=== PATIENT | female | born 1940 ===

== ENCOUNTER 2016-09-11 16:23 | Emergency (ER) | payer OTHER ==
--- NOTE | 2016-09-11 17:10 | EDPHY ---
H & P Time Seen by Provider: 09/11/16 17:10 HPI/ROS: CHIEF COMPLAINT: Cough for 1 week HISTORY OF PRESENT ILLNESS: This 75-year-old woman presents from her primary care clinic in [place] for cough and hypoxemia. She brought her note from Dr. Oz Mike, which notes that she has had a cough with white sputum and an oxygen saturation of 84% in his clinic at 2:22 p.m. today. Patient tells me she has had a cough for a week. It has been keeping her up at night. She tried albuterol once it tried Mucinex DM once but they both made her feel very shaky and anxious so she stopped. She does not have chest pain or leg swelling. No recent travel or immobilization. No history of pulmonary embolism. Symptoms are moderate to severe and keeping her up at night. REVIEW OF SYSTEMS: Eye: no change in vision ENT: no sore throat Cardiac: no chest pain or syncope Pulmonary: HPI Abdomen: no vomiting, diarrhea, abdominal pain Musculoskeletal: no back pain or leg pain Skin: no rash Neuro: no headache. She has felt intermittently dizzy for a month when she stands up and wonders if it is because of a change in her diuretic if it is making her blood pressure low. No vertigo Constitutional: no fever, decreased oral appetite and decreased energy for the past week. : no urinary symptoms A comprehensive 10 point review of systems is otherwise negative aside from elements mentioned in the history of present illness. PAST MEDICAL HISTORY: Kidney stones, myocardial infarction with stenting. Negative for DVT or PE. Social history: Nonsmoker. General Appearance: Alert and conversant, cooperative. Eyes: No scleral icterus. ENT, Mouth: Normal mucous membranes. Respiratory: Normal respiratory effort, breath sounds equal, lungs are clear to auscultation. No wheezes auscultated. Cardiovascular: Regular rate and rhythm. Gastrointestinal: Abdomen is soft and non tender. Neurological: Alert and oriented x3. Normally conversant. Face symmetric, normal movement and sensation in all extremities. Skin: Warm and dry, no rashes. Musculoskeletal: No peripheral edema and no joint swelling. No calf tenderness. Psychiatric: Mildly anxious otherwise negative. Emergency Department course/MDM: Clinically sounds like either acute URI or possibly pneumonia. I think pulmonary embolism or acute coronary syndrome or CHF are unlikely. Plan for CBC chemistry and chest x-ray. 1809: Chest x-ray shows airspace disease left lung base per radiologist, normal white blood cell count and chemistry panel. Likely pneumonia, query viral vs bacterial. 185: Results discussed, patient's oxygen saturation 91-92% on room air, encouraged to use hand-held MDI with spacer and teaching and spacer were provided in the emergency department. Oral azithromycin for 5 days. Patient wants go home which I think is entirely reasonable. She is not clinically severely short of breath here and has what looks like mild disease on her x-ray. O2 sat 92% at 1922. Unlikely to be PE or ACS. Does not have SIRS or sepsis criteria. Smoking Status: Never smoked Constitutional: Initial Vital Signs Temperature (C) 36.7 C 09/11/16 16:29 Heart Rate 62 09/11/16 16:29 Respiratory Rate 16 09/11/16 16:29 Blood Pressure 135/69 H 09/11/16 16:29 O2 Sat (%) 91 L 09/11/16 16:29 O2 Delivery Mode Room Air Allergies/Adverse Reactions: [email or web address] Allergy (Verified 09/11/16 16:33) Home Medications: Medication Instructions Recorded Atenolol 09/11/16 Azithromycin 250 mg PO DAILY #4 tablet 09/11/16 Benicar 09/11/16 Crestor 09/11/16 Hydrochlorothiazide 09/11/16 Plavix 09/11/16 Medical Decision Making - Diagnostics Imaging: Chest x-ray viewed independently by myself shows airspace disease left base, radiology report reviewed as well. Differential Diagnosis: Differential diagnosis considered for shortness of breath including but not limited to pulmonary infectious process, COPD, asthma, pulmonary embolus and congestive heart failure. - Data Points Laboratory Results: Laboratory Results 09/11/16 17:44 09/11/16 17:44 09/11/16 17:44 WBC 7.48 10^3/uL (3.80-9.50) RBC 4.70 10^6/uL (4.18-5.33) Hgb 15.4 g/dL (12.6-16.3) Hct 44.3 % (38.0-47.0) MCV 94.3 fL (81.5-99.8) MCH 32.8 pg (27.9-34.1) MCHC 34.8 g/dL (32.4-36.7) RDW 13.3 % (11.5-15.2) Plt Count 237 10^3/uL (150-400) MPV 10.1 fL (8.7-11.7) Neut % (Auto) 62.0 % (39.3-74.2) Lymph % (Auto) 27.0 % (15.0-45.0) [place] % (Auto) 9.6 % (4.5-13.0) Eos % (Auto) 0.7 % (0.6-7.6) Baso % (Auto) 0.4 % (0.3-1.7) Nucleat RBC Rel Count 0.0 % (0.0-0.2) Absolute Neuts (auto) 4.64 10^3/uL (1.70-6.50) Absolute Lymphs (auto) 2.02 10^3/uL (1.00-3.00) Absolute Monos (auto) 0.72 10^3/uL (0.30-0.80) Absolute Eos (auto) 0.05 10^3/uL (0.03-0.40) Absolute Basos (auto) 0.03 10^3/uL (0.02-0.10) Absolute Nucleated RBC 0.00 10^3/uL (0-0.01) Immature Gran % 0.3 % (0.0-1.1) Immature Gran # 0.02 10^3/uL (0.00-0.10) D-Dimer < 0.27 ug/mLFEU (0.00-0.50) Sodium 141 mEq/L (134-144) Potassium 4.7 mEq/L (3.5-5.2) Chloride 104 mEq/L (97-110) Carbon Dioxide 24 mEq/l (22-31) Anion Gap 13 mEq/L (8-16) BUN 22 mg/dL (7-23) Creatinine 0.9 mg/dL (0.6-1.0) Estimated GFR > 60 Glucose 104 H mg/dL (70-100) Calcium 9.6 mg/dL (8.5-10.4) Medications Given: Discontinued Medications Azithromycin (Zithromax) 500 mg PO EDNOW ONE PRN Reason: Protocol Stop: 09/11/16 18:56 Last Admin: 01/09/17 19:21 Dose: 500 mg Sodium Chloride (Ns) 1,000 mls @ 0 mls/hr IV ONCE ONE PRN Reason: Wide Open Stop: 09/11/16 17:24 Last Admin: 09/11/16 17:45 Dose: 1,000 mls Departure - Departure Disposition: Home, Routine, Self-Care Clinical Impression: Pneumonia Condition: Good Instructions: How to Use a Metered-Dose Inhaler and a Spacer (ED), Pneumonia ( ED) Referrals: Oz Mike MD [Primary Care Provider] - As per Instructions Prescriptions: Azithromycin 250 mg PO DAILY #4 tablet
[2016-09-11] MEDS ORDERED: NS 1,000 ML IV ONE (17:23)
[2016-09-11 17:50] LABS: % IMMATURE GRANULYOCYTES 0.3 % (0.0-1.1); ABSOLUTE IMMATURE GRANULOCYTES 0.02 10^3/uL (0.00-0.10); ADD DIFF? NO; ADD MORPH? NO; ADD SCAN? NO; ATYPICAL LYMPHOCYTE FLAG 50 (0-99); FRAGMENT RBC FLAG 0 (0-99); HEMATOCRIT 44.3 % (38.0-47.0); HEMOGLOBIN 15.4 g/dL (12.6-16.3); LEFT SHIFT FLG 0 (0-99); LIPEMIA HEMOLYSIS FLAG 90 (0-99); MEAN CELL HEMOGLOBIN 32.8 pg (27.9-34.1); MEAN CELL HEMOGLOBIN CONCENTR. 34.8 g/dL (32.4-36.7); MEAN CELL VOLUME 94.3 fL (81.5-99.8); MEAN PLATELET VOLUME 10.1 fL (8.7-11.7); PLATELET CLUMPS FLAG 0 (0-99); PLATELET COUNT 237 10^3/uL (150-400); RED CELL DISTRIBUTION WIDTH 13.3 % (11.5-15.2)
[2016-09-11 18:03] LABS: ANION GAP 13 mEq/L (8-16); CALCIUM 9.6 mg/dL (8.5-10.4); CARBON DIOXIDE 24 mEq/l (22-31); CHLORIDE 104 mEq/L (97-110); CREATININE 0.9 mg/dL (0.6-1.0); GLOMERULAR FILTRATION RATE > 60; GLUCOSE 104 mg/dL (70-100); POTASSIUM 4.7 mEq/L (3.5-5.2); SODIUM 141 mEq/L (134-144)
--- NOTE | 2016-09-11 18:10 | DX ---
Chest, PA Upright and Lateral Views, at 5:06 p.m. Clinical History: 75-year-old female with a productive cough for one week. Comparison Study: Chest, dated July 24, 2013. Findings: The cardiac and mediastinal silhouette is normal in size. There is mild central perihilar b ronchial wall thickening. There been development of some mild subsegmental atelectasis versus a minim al infiltrate at the left lung base, with some mild elevation of the left hemidiaphragm. Air-filled s plenic flexure is seen beneath the diaphragm. There is no pleural effusion, peripheral interstitial e [place], or pneumothorax. The trachea is midline. The osseous structures are age-appropriate, with some mild degenerative changes of the thoracic and upper lumbar spine. Impression: Perihilar bronchitis with mild airspace disease at the left lung base (which has develope d since 2012).
[2016-09-11] MEDS ORDERED: AZITHROMYCIN 250 MG TAB PO ONE (18:55)
[2016-09-11 19:10] VITALS: PULSE 64
[2016-09-11 19:23] VITALS: BP 131/55; RESP 18; TEMP 98.8; O2SAT 92
== END 2016-09-11 19:23 | disposition home or self-care (01) ==
DX: J18.9 Pneumonia, unspecified organism (principal); I25.2 Old myocardial infarction; Z95.5 Presence of coronary angioplasty implant and graft

== ENCOUNTER → 2016-09-25 | Outpatient (CLI) | payer OTHER | LOC: BHFA 13:15 | PROVIDERS: ATTEND Internal Medicine Cardiovascular Disease | DX: R07.9 Chest pain, unspecified (principal) | CPT/HCPCS: 78452; 93017; 93306; A9500 ==